=== PATIENT | male | born 1985 | race American Indian/Alaskan Native ===

== ENCOUNTER 2017-09-10 19:06 | Emergency (ER) | payer SELFPAY ==
[2017-09-10 19:30] VITALS: BP 119/72
[2017-09-10] MEDS ORDERED: TYLENOL PO ONE (19:30)
[2017-09-10] MEDS ORDERED: TYLENOL ONE (19:31)
[2017-09-11] MEDS ORDERED: CLEOCIN IM ONE (01:16)
[2017-09-11] MEDS ORDERED: MOTRIN PO ONE (01:16)
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
== END 2017-09-11 02:35 | disposition home or self-care (01) ==
LOC: ED 19:06
DX: S61.252A Open bite of right middle finger without damage to nail, initial encounter (principal); F17.200 Nicotine dependence, unspecified, uncomplicated; F12.10 Cannabis abuse, uncomplicated; W50.3XXA Accidental bite by another person, initial encounter; Y93.89 Activity, other specified; Y92.89 Other specified places as the place of occurrence of the external cause; Y99.8 Other external cause status
CPT/HCPCS: 96372; 99282